=== PATIENT | female | born 1930 | race Caucasian/White ===

== ENCOUNTER 2021-10-10 04:34 | Inpatient (IN) | payer MEDICARE ==
[2021-10-10 04:40] VITALS: BMI 20.5
[2021-10-10] MEDS ORDERED: Senokot S 8.6-50 MG TAB PO PRN (05:24)
[2021-10-10] MEDS ORDERED: Calcium Carbonate 500 MG ChewTAB PO PRN (05:24)
[2021-10-10 07:20] LABS: Digoxin 0.76 ng/mL (0.8-2.0)
[2021-10-10] MEDS ORDERED: Carvedilol 25 MG TAB PO SCH (08:00)
[2021-10-10] MEDS: Furosemide 20 MG TAB PO SCH (08:03)
[2021-10-10] MEDS: Multivit, Therapeutic 1 TAB PO SCH (08:03)
[2021-10-10] MEDS: Digoxin 0.25 MG TAB PO SCH (08:03)
[2021-10-10] MEDS: Rosuvastatin 20 MG TAB PO SCH (08:03)
[2021-10-10] MEDS: Calcium Carbonate 600 MG + Vit D TAB PO SCH (08:03)
[2021-10-10] MEDS ORDERED: Calcium Carbonate + Vit D 250 MG TAB PO SCH (09:00)
[2021-10-10] MEDS: Acetaminophen 325 MG TAB PO PRN ×2 (11:21→21:21)
[2021-10-10] MEDS: Carvedilol 12.5 MG TAB PO SCH (17:47)
[2021-10-10] MEDS: Enoxaparin Sodium 40 MG/0.4 ML SYRINGE SC SCH (21:21)
[2021-10-10] MEDS: Polyethylene Glycol 3350 17 GM Packet PO SCH (21:22)
[2021-10-11] MEDS: Acetaminophen 325 MG TAB PO PRN ×3 (09:01→23:45)
[2021-10-11] MEDS: Calcium Carbonate 600 MG + Vit D TAB PO SCH (09:02)
[2021-10-11] MEDS: Rosuvastatin 20 MG TAB PO SCH (09:03)
[2021-10-11] MEDS: Multivit, Therapeutic 1 TAB PO SCH (09:03)
[2021-10-11] MEDS: Furosemide 20 MG TAB PO SCH (09:03)
[2021-10-11] MEDS ORDERED: Polyethylene Glycol 3350 17 GM Packet PO PRN (09:45)
[2021-10-11 10:42] LABS: Magnesium 1.9 mg/dL (1.6-2.6); Phosphorus 2.7 mg/dL (2.3-4.7)
[2021-10-11] MEDS: Carvedilol 12.5 MG TAB PO SCH (10:44)
[2021-10-11] MEDS: Digoxin 0.25 MG TAB PO SCH (10:45)
[2021-10-11] MEDS: Polyethylene Glycol 3350 17 GM Packet PO SCH (17:18)
[2021-10-11] MEDS: Carvedilol 6.25 MG TAB PO SCH (17:18)
[2021-10-11] MEDS ORDERED: Lisinopril 10 MG TAB PO SCH (18:00)
[2021-10-11] MEDS: Enoxaparin Sodium 40 MG/0.4 ML SYRINGE SC SCH (20:46)
[2021-10-12 03:29] LABS: #Eosinphils 0.1 10x3/uL (0.0-0.5); #Monocytes 0.6 10x3/uL (0.0-1.1); %Basophils 0.6 % (0.0-2.0); %Eosinophils 1.5 % (0.0-6.0); %Lymphocytes 22.8 % (18.0-47.0); %Monocytes 12.7 % (0.0-10.0); %Neutrophils 62.2 % (40.0-75.0); Hemoglobin 10.7 g/dL (12.0-15.5); Mean Corpuscular HGB CONC 33.4 g/dL (32.0-36.0); Mean Corpuscular Hemoglobin 30.3 pg (27.0-33.0); Mean Corpuscular Volume 90.7 fl (81.6-98.3); Mean Platelet Volume 9.7 fl (7.4-10.4); Platelet Count 160 10x3/uL (150-450); RBC Distribution Width 13.2 % (11.5-14.5); Red Blood Cell (RBC) Count 3.53 10x6/uL (3.90-5.03); White Blood Cell (WBC) Count 4.8 10x3/uL (3.5-10.5)
[2021-10-12 03:50] LABS: ALT (SGPT) 16 U/L (8-55); AST (SGOT) 25 U/L (5-34); Albumin 3.4 g/dL (3.4-4.8); Alkaline Phosphatase 54 U/L (40-110); Anion Gap 10 mmol/L (10-20); BUN (Urea Nitrogen) 8 mg/dL (9.8-20.1); Bilirubin, Total 0.8 mg/dL (0.2-1.2); Calc. Creatinine Clearance 53 mL/min (70-130); Calcium 8.9 mg/dL (7.8-10.44); Carbon Dioxide 28 mmol/L (23-31); Chloride 103 mmol/L (98-107); Globulin 2.2 g/dL (2.4-3.5); Glucose 96 mg/dL (83-110); Potassium 3.4 mmol/L (3.5-5.1); Protein, Total 5.6 g/dL (5.8-8.1); Sodium 138 mmol/L (136-145)
[2021-10-12] MEDS: Acetaminophen 325 MG TAB PO PRN ×5 (05:09→23:56)
[2021-10-12] MEDS: Carvedilol 6.25 MG TAB PO SCH ×2 (07:48→16:31)
[2021-10-12] MEDS: Calcium Carbonate 600 MG + Vit D TAB PO SCH (07:48)
[2021-10-12] MEDS: Rosuvastatin 20 MG TAB PO SCH (07:48)
[2021-10-12] MEDS: Furosemide 20 MG TAB PO SCH (07:48)
[2021-10-12] MEDS: Multivit, Therapeutic 1 TAB PO SCH (07:49)
[2021-10-12] MEDS ORDERED: Lisinopril 10 MG TAB PO SCH ×3 (09:00→21:00)
[2021-10-12] MEDS ORDERED: Potassium Chloride 20 MEQ TAB PO SCH (10:00)
[2021-10-12] MEDS: Ondansetron PF 4 MG/2 ML Vial IVP PRN ×2 (10:38→15:49)
[2021-10-12] MEDS: Polyethylene Glycol 3350 17 GM Packet PO SCH (16:06)
[2021-10-12] MEDS ORDERED: Ondansetron PF 4 MG/2 ML Vial IVP SCH (17:00)
[2021-10-12] MEDS ORDERED: Ketorolac Tromethamine 30 MG/ML VIAL IVP SCH (17:15)
[2021-10-12] MEDS: Enoxaparin Sodium 40 MG/0.4 ML SYRINGE SC SCH (20:08)
[2021-10-12] MEDS ORDERED: Promethazine HCl 12.5 MG in Sodium Chloride 0.9% 50 ML IVPB SCH (20:45)
[2021-10-13 00:52] LABS: SARS-CoV-2 NAA Rapid Test Not Detected (NotDetected)
[2021-10-13] MEDS: Acetaminophen 325 MG TAB PO PRN ×4 (04:26→20:19)
[2021-10-13 09:30] LABS: Anion Gap 11 mmol/L (10-20); BUN (Urea Nitrogen) 11 mg/dL (9.8-20.1); Calc. Creatinine Clearance 49 mL/min (70-130); Calcium 9.7 mg/dL (7.8-10.44); Carbon Dioxide 27 mmol/L (23-31); Chloride 98 mmol/L (98-107); Glucose 95 mg/dL (83-110); Potassium 3.7 mmol/L (3.5-5.1); Sodium 132 mmol/L (136-145)
[2021-10-13] MEDS: Lisinopril 10 MG TAB PO SCH ×3 (09:51→20:19)
[2021-10-13] MEDS: Amlodipine 5 MG TAB PO SCH (09:51)
[2021-10-13] MEDS: Furosemide 20 MG TAB PO SCH (09:52)
[2021-10-13] MEDS: Calcium Carbonate 600 MG + Vit D TAB PO SCH (09:52)
[2021-10-13] MEDS: Multivit, Therapeutic 1 TAB PO SCH (09:52)
[2021-10-13] MEDS: Carvedilol 6.25 MG TAB PO SCH ×2 (09:52→17:02)
[2021-10-13] MEDS: Rosuvastatin 20 MG TAB PO SCH (09:52)
[2021-10-13] MEDS: Ibuprofen 400 MG TAB PO PRN (17:02)
[2021-10-13] MEDS: Polyethylene Glycol 3350 17 GM Packet PO SCH (17:04)
[2021-10-13] MEDS: Enoxaparin Sodium 40 MG/0.4 ML SYRINGE SC SCH (20:19)
[2021-10-14] MEDS: Calcium Carbonate 600 MG + Vit D TAB PO SCH (09:15)
[2021-10-14] MEDS: Rosuvastatin 20 MG TAB PO SCH (09:15)
[2021-10-14] MEDS: Amlodipine 5 MG TAB PO SCH (09:15)
[2021-10-14] MEDS: Furosemide 20 MG TAB PO SCH (09:15)
[2021-10-14] MEDS: Multivit, Therapeutic 1 TAB PO SCH (09:16)
[2021-10-14] MEDS: Lisinopril 10 MG TAB PO SCH ×3 (09:16→21:18)
[2021-10-14] MEDS: Carvedilol 6.25 MG TAB PO SCH ×2 (09:16→17:06)
[2021-10-14] MEDS: Acetaminophen 325 MG TAB PO PRN (09:17)
[2021-10-14] MEDS: Ibuprofen 400 MG TAB PO PRN (09:17)
[2021-10-14] MEDS: Polyethylene Glycol 3350 17 GM Packet PO SCH (17:08)
[2021-10-14] MEDS: Enoxaparin Sodium 40 MG/0.4 ML SYRINGE SC SCH (21:18)
[2021-10-15] MEDS: Acetaminophen 325 MG TAB PO PRN ×4 (02:43→20:54)
[2021-10-15] MEDS: Amlodipine 5 MG TAB PO SCH (08:58)
[2021-10-15] MEDS: Calcium Carbonate 600 MG + Vit D TAB PO SCH (08:59)
[2021-10-15] MEDS: Multivit, Therapeutic 1 TAB PO SCH (08:59)
[2021-10-15] MEDS: Furosemide 20 MG TAB PO SCH (08:59)
[2021-10-15] MEDS: Carvedilol 6.25 MG TAB PO SCH ×2 (08:59→16:07)
[2021-10-15] MEDS: Rosuvastatin 20 MG TAB PO SCH (08:59)
[2021-10-15] MEDS: Lisinopril 10 MG TAB PO SCH ×3 (08:59→20:54)
[2021-10-15] MEDS: Polyethylene Glycol 3350 17 GM Packet PO SCH (16:07)
[2021-10-15] MEDS ORDERED: Cepastat Lozenges 1 LOZ PO PRN (17:33)
[2021-10-15] MEDS ORDERED: Loratadine 10 MG TAB PO PRN (17:34)
[2021-10-15] MEDS ORDERED: Loratadine 10 MG TAB PO SCH (17:45)
[2021-10-15] MEDS: Enoxaparin Sodium 40 MG/0.4 ML SYRINGE SC SCH (20:54)
[2021-10-16 04:18] LABS: #Eosinphils 0.1 10x3/uL (0.0-0.5); #Monocytes 0.6 10x3/uL (0.0-1.1); #Neutrophils 3.2 10x3/uL (1.5-8.4); %Basophils 0.6 % (0.0-2.0); %Eosinophils 2.3 % (0.0-6.0); %Lymphocytes 22.2 % (18.0-47.0); %Monocytes 12.2 % (0.0-10.0); %Neutrophils 62.1 % (40.0-75.0); Hemoglobin 11.7 g/dL (12.0-15.5); Mean Corpuscular HGB CONC 33.9 g/dL (32.0-36.0); Mean Corpuscular Hemoglobin 30.4 pg (27.0-33.0); Mean Corpuscular Volume 89.6 fl (81.6-98.3); Mean Platelet Volume 9.5 fl (7.4-10.4); Platelet Count 185 10x3/uL (150-450); RBC Distribution Width 13.1 % (11.5-14.5); Red Blood Cell (RBC) Count 3.85 10x6/uL (3.90-5.03); White Blood Cell (WBC) Count 5.2 10x3/uL (3.5-10.5)
[2021-10-16 05:21] LABS: ALT (SGPT) 32 U/L (8-55); AST (SGOT) 38 U/L (5-34); Albumin 3.9 g/dL (3.4-4.8); Alkaline Phosphatase 60 U/L (40-110); Anion Gap 11 mmol/L (10-20); BUN (Urea Nitrogen) 9 mg/dL (9.8-20.1); Calc. Creatinine Clearance 52 mL/min (70-130); Calcium 9.5 mg/dL (7.8-10.44); Carbon Dioxide 29 mmol/L (23-31); Chloride 102 mmol/L (98-107); Globulin 2.5 g/dL (2.4-3.5); Glucose 96 mg/dL (83-110); Potassium 3.7 mmol/L (3.5-5.1); Protein, Total 6.4 g/dL (5.8-8.1); Sodium 138 mmol/L (136-145)
[2021-10-16] MEDS: Amlodipine 5 MG TAB PO SCH (08:35)
[2021-10-16] MEDS: Calcium Carbonate 600 MG + Vit D TAB PO SCH (08:36)
[2021-10-16] MEDS: Furosemide 20 MG TAB PO SCH (08:36)
[2021-10-16] MEDS: Carvedilol 6.25 MG TAB PO SCH (08:36)
[2021-10-16] MEDS: Acetaminophen 325 MG TAB PO PRN (08:36)
[2021-10-16] MEDS: Rosuvastatin 20 MG TAB PO SCH (08:36)
[2021-10-16] MEDS: Multivit, Therapeutic 1 TAB PO SCH (08:36)
[2021-10-16] MEDS: Lisinopril 10 MG TAB PO SCH (08:36)
[2021-10-16] MEDS ORDERED: Amlodipine 5 MG TAB PO SCH (09:45)
[2021-10-16] MEDS ORDERED: Potassium Chloride 20 MEQ TAB PO SCH (09:45)
[2021-10-16 12:22] VITALS: TEMP 97.7
[2021-10-16 12:55] VITALS: BP 174/96
[2021-10-17] MEDS ORDERED: Amlodipine 5 MG TAB PO SCH (09:00)
== END 2021-10-16 15:01 | DRG 310 ==
LOC: CSHTELE 04:34 → OBSVTOIN 10-12 15:10
PROVIDERS: ADMIT Student in an Organized Health Care Education/Training Program; ATTEND Internal Medicine
DX: I48.20 Chronic atrial fibrillation, unspecified (principal); E78.5 Hyperlipidemia, unspecified; I12.9 Hypertensive chronic kidney disease with stage 1 through stage 4 chronic kidney disease, or unspecified chronic kidney disease; N18.2 Chronic kidney disease, stage 2 (mild); R55 Syncope and collapse; M19.90 Unspecified osteoarthritis, unspecified site; Z20.822 Contact with and (suspected) exposure to COVID-19; Z66 Do not resuscitate; R51.9 Headache, unspecified; R11.2 Nausea with vomiting, unspecified; K80.20 Calculus of gallbladder without cholecystitis without obstruction; Z96.643 Presence of artificial hip joint, bilateral; I65.23 Occlusion and stenosis of bilateral carotid arteries; M06.9 Rheumatoid arthritis, unspecified; W18.30XA Fall on same level, unspecified, initial encounter; Z60.2 Problems related to living alone; Z88.6 Allergy status to analgesic agent; Z79.899 Other long term (current) drug therapy; Z79.891 Long term (current) use of opiate analgesic; Z90.710 Acquired absence of both cervix and uterus; S09.90XA Unspecified injury of head, initial encounter
CPT/HCPCS: 36415; 51701; 70450; 71045; 72125; 76705; 80048; 80053; 80162; 81003; 82550; 83735; 83880; 84100; 84436; 84443; 84484; 85025; 93005; 93010; 93306; 93880; 96372; 96374; G0378; J1650; J1885; J2405; J2550; U0002